=== PATIENT | male | born 1970 | race Hispanic/Latino ===

== ENCOUNTER 2023-08-05 06:38 | Emergency (ER) | payer OTHER, SELFPAY ==
[2023-08-05] MEDS ORDERED: Ketorolac Tromethamine 30 MG/ML VIAL ONE (07:11)
== END 2023-08-05 07:34 | disposition home or self-care (01) ==
LOC: MADERS 06:38
DX: S33.5XXA Sprain of ligaments of lumbar spine, initial encounter (principal); X50.0XXA Overexertion from strenuous movement or load, initial encounter
CPT/HCPCS: 96372; 99283; J1885